=== PATIENT | female | born 1980 | race Caucasian/White ===

== ENCOUNTER 2017-09-02 17:22 | Observation (INO) | payer MEDICAID, SELFPAY ==
[2017-09-02] VITALS (14 sets, daily range): BP systolic 88–117; BP diastolic 68–82; PULSE 105–132; RESP 16–20; TEMP 36.1–36.8; O2SAT 90–100; BMI 15.0; BMI 14.9
[2017-09-02] MEDS: Cefazolin 2 GM in 0.9% Normal Saline 100 ML IV (16:11)
[2017-09-02] MEDS: Bupivacaine Mpf 0.5% 30 ML VIAL (16:38)
--- NOTE | 2017-09-02 17:27 | PCM.OPRPT ---
Report of Operation Date of Procedure: 09/02/17 Pre-Operative Diagnosis: left breast cancer, metastatic, recurrent pleural effusion Post-Operative Diagnosis: left breast cancer, metastatic, recurrent pleural effusion - successful left pluerex catheter placement Surgery/Procedure Performed:: left ultrasound guided tunnelled pleurex catheter placement machine umbrella tipper: None Type of Anesthesia:: MAC Specimen's removed: pleural fluid Description of Procedure: The patient was brought to the operating suite. The left/right chest site was marked in the holding area and the patient concurred this was the planned operative site. Sign was performed verifying patient, site, position, skip antibiotic prophylaxis-2 g of Ancef and DVT prophylaxis with SCDs. Ultrasound was used to evaluate the left/right thoracic space and pleural fluid was noted to be at the planned site which was marked on the skin. the orientation was quite challenging due to the extensive necrosis and tumor invasion from her neglected left breast cancer and the fact that her left arm was a mobile and could not be moved out of the plane. The best access site was located low and relatively posterior. This site was marked. Following IV sedation, left/right chest and abdomen were prepped and draped in the usual fashion. Timeout was performed verifying patient, site, position. Local anesthetic was injected and a Seldinger needle was used to access the left/right pleural space without difficulty under the ultrasound guidance. a guidewire was inserted and advanced into the pleural space. Local anesthetic was injected and incision made for the catheter exit site. this site was actually low in the abdomen. Given the patient's small size, thoracic vertebral collapse secondary to tumor invasion and upper abdominal quadrant skin invasion from tumor. Next the catheter was tunneled from the skin exit site to the wire. this was again challenging due to the immobility of the left arm. Dilators were placed over the wire until the largest dilator with introducer sheath were placed. The wire and dilator removed. The catheter was fed through the introducer suture sheath and adjusted to the edge of the pleural surface with the fenestrations . There was good return of pleural fluid. The Pleurx catheter was affixed to an adapter and attached to a Pleur-evac at 20 cm suction. A total of approximately 600 cc of fluid was drained between drainage into the Pleur-evac and fluid which ran out through the dilator. The catheter was secured with a 3-0 silk suture at the skin exit site. The thoracic site due to edema could not be closed with the usual 4-0 Biosyn interrupted subcuticular suturesbut instead closed with a 3-0 nylon suture.. A dressing was applied. The joints were taped and a large dressing placed over the drain exit site. The patient was brought to recovery room in stable condition with plans for a postprocedure chest x-ray.
--- NOTE | 2017-09-02 17:45 | RAD_ITS ---
STUDY: X-RAY CHEST REASON FOR EXAM: Female, 36 years old. Left chest tube placement TECHNIQUE: A single frontal view of the chest was obtained. COMPARISON: January 24, 2015 FINDINGS: A catheter projects over the lower and medial left hemithorax. The lungs are underaerated. There are no focal airspace opacities. There is minimal air in the pleural margin in the lower lateral left chest. The cardiac silhouette is normal in size. The mediastinum and hilar regions are unremarkable. Normal visualized pulmonary arteries. Normal visualized aortic arch and descending thoracic aorta. There is marked dextroscoliosis of the thoracic spine. Hardware is present along the lower cervical and upper thoracic spine. The visualized ribs, clavicles, and shoulders are unremarkable. There is no demonstrated abnormality of the visualized upper abdomen. RAD/Chest 1 View (Portable) IMPRESSION: A catheter projects over the lower and medial left chest. There is a small pneumothorax along the lower lateral left pleural margin. Electronically Signed: Nanci Canales MD at 18:46 EDT Tel Direct: [phone], Service support ,
[2017-09-02] MEDS: oxyCODONE 5 MG Tablet PO (19:09)
[2017-09-02] MEDS: Lactated Ringers 1,000 ML 30 ML IV (19:10)
[2017-09-02] MEDS: fentaNYL 100 MCG/2 ML Ampul 25 MCG IV (22:54)
[2017-09-02] MEDS: 0.9% NaCl Peripheral Flush Adult/Peds IV (22:55)
[2017-09-03] MEDS: Cefazolin 1 GM/50 ML BAG IV ×2 (00:13→08:25)
[2017-09-03] MEDS: oxyCODONE 5 MG Tablet PO ×4 (00:18→11:25)
[2017-09-03 04:21] VITALS: BP 107/71; PULSE 115; RESP 16; TEMP 37.1; O2SAT 100
--- NOTE | 2017-09-03 05:00 | RAD_ITS ---
STUDY: X-RAY CHEST REASON FOR EXAM: Female, 36 years old. Left-sided chest tube, left pleural effusion TECHNIQUE: Single AP portable view of the chest. COMPARISON: 09/02/2017 FINDINGS: Left basilar approach chest tube extending to the left apex. No pneumothorax detected. Previous pleural air along the left lower chest wall is not visualized. Minimal atelectatic changes in the left base. Increased opacification right mid and lower right hemithorax. There is no demonstrated pleural abnormality. Normal size heart. Normal mediastinum and nikunj. Normal visualized pulmonary arteries. Normal visualized aortic arch and descending thoracic aorta. There is a dextroscoliosis of the thoracic spine. Status post cervicothoracic fusion. Sclerotic lesions within the proximal left humerus and glenoid, probably acromion. There is no demonstrated abnormality of the visualized soft tissue structures of the upper abdomen. RAD/Chest 1 View (Portable) IMPRESSION: No pneumothorax detected. Stable chest tube position. Left basilar atelectasis suspected. Worsening of aeration with increased opacification of the right lower thorax. Other nonacute findings as outlined above. Electronically Signed: Safia Perez MD at 9:17 EDT , Service support ,
[2017-09-03 07:05] VITALS: O2SAT 99
[2017-09-03 07:24] VITALS: O2SAT 96
[2017-09-03] MEDS: Acetaminophen 500 MG Tablet 1000 MG PO (08:11)
--- NOTE | 2017-09-03 10:12 | PCM.DC ---
You will use the following diet at home:: No restrictions Discharge Activity: Return to Normal Activity, May Shower Call your doctor if your incision/area has: Continuous Slow Oozing, Foul Smelling Discharge, Swelling at the incision site Call your doctor if you observe: Fever of 101 or Higher Change Dressing in (Days):: 1 - as directed for the chest dressing Additional Instructions: keep the Pleurx catheter site dressing in place until planned drainage on Tuesday. If you note worsening shortness of breath, return to the emergency department for a chest x-ray. Allergies/Adverse Reactions: Allergies sulfamethoxazole [From Bactrim] Allergy (Verified 09/17/16 10:38) Rash trimethoprim [From Bactrim] Allergy (Verified 09/17/16 10:38) Rash Medications to take at Discharge Multivitamins,Therapeutic [Multivitamin] 1 tablet PO DAILY 12/26/14 Capecitabine [Xeloda] 1,000 mg PO BID 08/31/17 Rivaroxaban [Xarelto] 15 mg PO DAILY 08/31/17 Os-Ryan 500MG + D 500 mg PO DAILY 09/02/17 Acetaminophen [Tylenol] 1,000 mg PO Q6H PRN tablet 09/03/17 Oxycodone [Oxyir] 5 mg PO Q4H PRN PRN #30 tab 09/03/17 Silver Sulfadiazine 1% Crm [Silvadene Cream] 1 applic TOPICAL DAILY@0600 #6 bottle 09/03/17 The following prescriptions were given: Oxycodone [Oxyir] 5 mg PO Q4H PRN PRN #30 tab PRN Reason: Severe Pain (6-10/10) Silver Sulfadiazine 1% Crm [Silvadene Cream] 1 applic TOPICAL DAILY@0600 #6 bottle Primary Care Physician: Tatiana Lowe [Primary Care Provider] - Please Follow Up With: Nacho Joya MD When: Tuesday
--- NOTE | 2017-09-03 10:14 | PCM.DC.SUM ---
Discharge Date and Diagnosis Date of Admission: 09/02/17 Date of Discharge: 09/03/17 - Primary Discharge Diagnosis metastatic breast cancer Recurring left malignant pleural effusion - Secondary Discharge Diagnosis Chronic Problems Breast cancer metastasized to bone (Chronic) Hospital Course and Treatment Imaging Results: 09/03/17 05:00 CXR [Chest 1 View (Portable)] [RAD] Urgent Operations: None, - - tunneled left thoracic catheter placement Summary of Care Provided: The patient is a 36 year old F with locally advanced and metastatic left breast cancer who presents with worsening shortness of breath due to recurring left malignant pleural effusions. The patient was brought in and underwent a left tunneled thoracic catheter placement. The patient was maintained on pleural vac drainage overnight. Chest x-ray demonstrated good drainage of fluid and expansion of the lung. The catheter system was then capped and dressed. Her left breast wound with extensive skin involvement and tissue necrosis was redressed with an attempt to use Silvadene as an agent to improve comfort and decrease dressing change, bleeding. The patient was doing well and able to be discharged home on postoperative day 1 with plans to follow-up in my office on Tuesday for an initial pleural catheter drainage. Discharge Diet: No Restrictions Discharge Activity: Return to Normal Activity, May Shower Call your doctor if your incision/area has: Continuous Slow Oozing, Foul Smelling Discharge, Swelling at the incision site Call your doctor if you observe: Fever of 101 or Higher Change Dressing in (Days):: 1 - as directed for the chest dressing Home Medications: Medications to take at Discharge Multivitamins,Therapeutic [Multivitamin] 1 tablet PO DAILY 12/26/14 Capecitabine [Xeloda] 1,000 mg PO BID 08/31/17 Rivaroxaban [Xarelto] 15 mg PO DAILY 08/31/17 Os-Ryan 500MG + D 500 mg PO DAILY 09/02/17 Acetaminophen [Tylenol] 1,000 mg PO Q6H PRN tablet 09/03/17 Oxycodone [Oxyir] 5 mg PO Q4H PRN PRN #30 tab 09/03/17 Silver Sulfadiazine 1% Crm [Silvadene Cream] 1 applic TOPICAL DAILY@0600 #6 bottle 09/03/17 Following Prescrptions Were Given to Patient: Oxycodone [Oxyir] 5 mg PO Q4H PRN PRN #30 tab PRN Reason: Severe Pain (6-03/22) Silver Sulfadiazine 1% Crm [Silvadene Cream] 1 applic TOPICAL DAILY@0600 #6 bottle Primary Care Physician: Tatiana Lowe [Primary Care Provider] - Please Follow Up With: Nacho Joya MD When: Tuesday Medical Necessity - Tobacco Use Smoking Status: Never smoker Meaningful Use Info Meaningful Use Diagnoses (Choose all that apply): None applicable
[2017-09-03 10:47] VITALS: BP 108/78; PULSE 107; RESP 20; TEMP 36.7; O2SAT 97
== END 2017-09-03 12:30 | disposition home or self-care (01) ==
LOC: SDC 17:39 → MS2 09-03 06:05
PROVIDERS: Admitting Provider Surgery; Family Provider Family Medicine; PCP Family Medicine; Visit Provider Surgery
PROC: (CPT 32550; principal; 2017-09-02 15:45)
DX: Z45.2 Encounter for adjustment and management of vascular access device (principal); C50.912 Malignant neoplasm of unspecified site of left female breast; J91.0 Malignant pleural effusion; C79.51 Secondary malignant neoplasm of bone; I82.621 Acute embolism and thrombosis of deep veins of right upper extremity; R91.8 Other nonspecific abnormal finding of lung field; Z79.899 Other long term (current) drug therapy; Z79.01 Long term (current) use of anticoagulants
CPT/HCPCS: 32550; 71045; 96365; 96366; 96375; 97802; 99218; J7120; A4216; C1729; G0378; G0379; J2405